=== PATIENT | female | born 1970 | race Caucasian/White ===

== ENCOUNTER → 2020-10-17 | Outpatient (CLI) | payer OTHER ==
[~2020-10-17] MED LIST: LEVO125T5 PO; LIOT5TAB11 PO; ROPI0.254 PO
[2020-10-17 10:27] LABS: BASOPHILS % (AUTO) 1 % (0-1); EOSINOPHILS % (AUTO) 2 % (1-7); LYMPHOCYTES % (AUTO) 45 % (22-44); MEAN CORPUSCULAR HEMOGLOBIN 30.8 pg (27.0-34.8); MEAN CORPUSCULAR HGB CONC 33.9 g/dL (32.4-35.8); MEAN PLATELET VOLUME 9.9 fL (7.4-10.4); MONOCYTES % (AUTO) 9 % (2-9); NEUTROPHILS % (AUTO) 43 % (42-75); PLATELET COUNT 313 x10^3/uL (130-400); RED CELL DISTRIBUTION WIDTH 12.4 % (9.6-15.2)
[2020-10-17 10:34] LABS: ALANINE AMINOTRANSFERASE 26 U/L (12-78); ALBUMIN 3.8 g/dL (3.4-5.0); ANION GAP 6 mmol/L (5-15); CALCIUM 9.2 mg/dL (8.5-10.1); CHLORIDE 111 mmol/L (98-107); CREATININE 0.78 mg/dL (0.55-1.02); INTERNATIONAL NORMALIZED RATIO 1.03 (0.93-1.1); MD NO
[2020-10-17 10:36] LABS: ALKALINE PHOSPHATASE 67 U/L (45-117); BILIRUBIN,TOTAL 0.4 mg/dL (0.2-1.0)
== END | disposition home or self-care (01) ==
LOC: STAR 08:57
PROVIDERS: ATTEND Orthopaedic Surgery
DX: Z01.810 Encounter for preprocedural cardiovascular examination (principal); Z01.818 Encounter for other preprocedural examination; M16.12 Unilateral primary osteoarthritis, left hip; M25.552 Pain in left hip; Z79.01 Long term (current) use of anticoagulants; Z20.822 Contact with and (suspected) exposure to COVID-19
CPT/HCPCS: 80053; 83036; 85025; 85610; 85730; 87081; 87147; 87806; 93005; U0003; G0475

== ENCOUNTER 2020-10-21 06:19 | Day surgery (SDC) | payer OTHER ==
[~2020-10-21] VITALS: Ht 167.6 cm; Wt 94.0 kg
[2020-10-21] MEDS ORDERED: KETOROLAC 30 MG/1 ML IV SCH (07:00)
[2020-10-21] MEDS ORDERED: CEFAZOLIN PMX 1GM/50ML 50 ML IVPB SCH (07:00)
[2020-10-21] MEDS ORDERED: LACTATED RINGERS 1,000 ML IV SCH (07:00)
[2020-10-21] MEDS ORDERED: ONDANSETRON 2MG/ML, 2ML IVPush PRN (07:00)
[2020-10-21] MEDS ORDERED: OXYcodone IR 5MG TABLET PO PRN ×2 (07:00)
[2020-10-21] MEDS ORDERED: SENNA/DOCUSATE TABLET PO PRN (07:00)
[2020-10-21] MEDS ORDERED: ACETAMINOPHEN 325 MG TABLET PO SCH (07:00)
[2020-10-21] MEDS ORDERED: ONDANSETRON 4 MG TABLET PO PRN (07:00)
[2020-10-21] MEDS ORDERED: HYDROmorphone 1 MG/ML, 1ML INJ IVPush PRN ×2 (07:00→09:00)
[2020-10-21 07:23] VITALS: BP 119/67
[2020-10-21] MEDS ORDERED: FENTANYL PF 250 MCG/5ML ONE (07:23)
[2020-10-21] MEDS ORDERED: MIDAZOLAM 1 MG/ML, 2ML ONE (07:23)
[2020-10-21] MEDS ORDERED: CHLORHEXIDINE 15 ML UDC PO ONE (07:30)
[2020-10-21] MEDS ORDERED: GABAPENTIN 300 MG CAPSULE PO ONE (07:30)
[2020-10-21] MEDS ORDERED: ACETAMINOPHEN 500 MG TABLET PO ONE (07:30)
[2020-10-21] MEDS ORDERED: TRANEXAMIC ACID 100 MG/ML, 10ML ONE (07:39)
[2020-10-21] MEDS ORDERED: KETOROLAC 60 MG/2 ML ONE (07:39)
[2020-10-21] MEDS ORDERED: VANCOMYCIN 1,000 MG ONE (07:40)
[2020-10-21] MEDS ORDERED: ROPIvacaine/PF 0.2%, 20 ML ONE (07:40)
[2020-10-21 08:00] LABS: HCG UR SG 1.013 (1.003-1.030)
[2020-10-21] MEDS ORDERED: PROPOFOL 50 ML ONE (08:35)
[2020-10-21] MEDS ORDERED: FENTANYL PF 100 MCG/2ML IV PRN (09:00)
[2020-10-21] MEDS ORDERED: DOCUSATE 100 MG CAPSULE PO SCH (09:00)
[2020-10-21] MEDS ORDERED: OXYcodone 5 MG/5 ML ORAL.SOL UDC PO PRN (09:00)
[2020-10-21] MEDS ORDERED: MEPERIDINE/PF 25MG/0.5ML IVPush PRN (09:00)
[2020-10-21] MEDS ORDERED: LABETALOL 5MG/ML, 20ML IV PRN (09:00)
[2020-10-21] MEDS ORDERED: PROMETHAZINE 25 MG/ML, 1ML IVPush PRN (09:00)
[2020-10-21] MEDS ORDERED: LEVOTHYROXINE 125 MCG TABLET PO SCH (09:00)
[2020-10-21] MEDS ORDERED: hydrALAzine 20 MG/ML, 1ML IV PRN (09:00)
[2020-10-21] MEDS ORDERED: LORazepam 2 MG/ML, 1ML IVPush PRN (09:00)
[2020-10-21] MEDS ORDERED: ALBUTEROL SULFATE 2.5 MG/3 ML NPPB PRN (09:00)
[2020-10-21] MEDS ORDERED: ASPIRIN 81 MG TABLET EC PO SCH (09:00)
[2020-10-21] MEDS ORDERED: LIOTHYRONINE 5 MCG TABLET PO SCH (09:00)
[2020-10-21] MEDS ORDERED: NEOSTIGMINE 1 MG/ML, 10ML ONE (09:06)
[2020-10-21] MEDS ORDERED: PROPOFOL 10 MG/ML, 20ML ONE (09:06)
[2020-10-21] MEDS ORDERED: LIDOCAINE-MPF 2% ,5ML ONE (09:06)
[2020-10-21] MEDS ORDERED: GLYCOPYRROLATE 0.2MG/1ML, 5ML ONE (09:06)
[2020-10-21] MEDS ORDERED: CEFAZOLIN 1,000 MG ONE (09:06)
[2020-10-21] MEDS ORDERED: ROCURONIUM 10MG/ML,5ML ONE (09:06)
[2020-10-21] MEDS ORDERED: ONDANSETRON 2MG/ML, 2ML ONE (09:06)
[2020-10-21] MEDS ORDERED: DEXAMETHASONE 4 MG/ML, 5ML ONE (09:06)
[2020-10-21] MEDS ORDERED: HYDROmorphone 1 MG/ML, 1ML INJ ONE ×2 (09:13→10:06)
[2020-10-21] MEDS ORDERED: FENTANYL PF 100 MCG/2ML ONE (10:06)
[2020-10-21] MEDS ORDERED: ACETAMINOPHEN 650 MG/20.3 ML UDC ONE (10:06)
[2020-10-21] MEDS ORDERED: OXYcodone 5 MG/5 ML ORAL.SOL UDC ONE (10:07)
[2020-10-21] MEDS ORDERED: MEPERIDINE/PF 25MG/ML,1ML ONE (10:14)
[2020-10-21] MEDS ORDERED: ROPINIROLE 0.25MG TABLET PO SCH (21:00)
== END 2020-10-21 13:45 | disposition home or self-care (01) ==
LOC: OUT 06:19 → ORIP 06:39 → UNDOADMOB 06:39 → UNDOADMIN 06:48 → ORIP 06:48
PROVIDERS: ATTEND Orthopaedic Surgery
DX: M25.552 Pain in left hip (principal); M16.12 Unilateral primary osteoarthritis, left hip; Z88.8 Allergy status to other drugs, medicaments and biological substances
CPT/HCPCS: 27130; 36415; 73502; 81025; 86850; 86900; 97110; 97116; 97162; C1713; C1776; J0690; J1100; J1885; J2175; J2250; J2405; J2704; J2710; J2795; J3010; J7120; J1170; J3370